=== PATIENT | male | born 1940 | race Caucasian/White ===

== ENCOUNTER 2020-03-19 17:41 | Outpatient (CLI) | payer OTHER, SELFPAY ==
[2020-03-19 17:58] LABS: Basophils % 0.5 %; Eosinophils # 0.2 10^3/uL (0.0-0.8); Eosinophils % 2.4 %; Hemoglobin 13.5 g/dL (11.7-16.6); Lymphocytes # 1.3 10^3/uL (0.8-4.8); Mean Corpuscular HGB Conc 32.1 g/dL (30.0-36.0); Mean Corpuscular Hemoglobin 33.3 pg (28.0-34.0); Mean Corpuscular Volume 103.4 fL (80-94); Mean Platelet Volume 10.3 fL (7.4-10.4); Monocytes % 12.5 %; Neutrophils # 5.33 10^3/uL (1.8-7.7); Neutrophils % 67.8 %; Nucleated Red Blood Cells % 0 %; Platelet Count 154 10^3/cmm (130-400); Red Blood Count 4.06 10^6/uL (4.1-5.3); Red Cell Distribution Width 14.3 % (12.1-15.1); White Blood Count 7.9 10^3/uL (4.0-10.0)
[2020-03-19 18:12] LABS: INR 1.57 (0.8-1.2)
== END 2020-03-19 17:42 | disposition home or self-care (01) ==
LOC: LAB 17:49
PROVIDERS: Visit Provider Internal Medicine
DX: K92.2 Gastrointestinal hemorrhage, unspecified (principal)
CPT/HCPCS: 85025; 85610